=== PATIENT | male | born 1975 | race Caucasian/White ===

== ENCOUNTER 2017-02-18 22:51 | Emergency (ER) | payer SELFPAY ==
[2017-02-18 23:16] LABS: BASOPHILS 0.1 % (0-2); EOSINOPHILS 0.6 % (0-7); HEMATOCRIT 42.8 % (42.0-54.0); IMMATURE GRANULOCYTES 0.2 % (0-5); LYMPHOCYTES 11.1 % (15-50); MCH 34.2 pg (26.0-34.0); MCV 97.7 fL (80.0-100.0); MEAN PLATELET VOLUME 9.8 fL (7.4-10.4); MONOCYTES 8.2 % (2-11); NEUTROPHILS 79.8 % (40-80); PLATELET COUNT 309 10x3/uL (130-400); RBC 4.38 10x6/uL (4.20-6.10); RDW 12.8 % (11.5-14.5); WBC 13.7 10x3/uL (4.8-10.8)
== END 2017-02-19 | disposition home or self-care (01) ==
LOC: D.ER 22:51
PROVIDERS: Emergency Medicine
DX: R10.9 Unspecified abdominal pain (principal); F17.200 Nicotine dependence, unspecified, uncomplicated